=== PATIENT | female | born 2005 | race Caucasian/White ===

== ENCOUNTER 2024-06-06 08:31 | Emergency (ER) | payer BC, MEDICAID, SELFPAY ==
[2024-06-06 08:41] VITALS: BMI 28.7
[2024-06-06 09:05] LABS: Basophils % 0.2 %; Eosinophils # 0.2 10^3/uL (0.0-0.8); Eosinophils % 2.2 %; Hematocrit 35.1 % (36-47); Lymphocytes # 1.8 10^3/uL (1.5-6.5); Lymphocytes % 16.5 %; Mean Corpuscular HGB Conc 33.3 g/dL (30-55); Mean Corpuscular Hemoglobin 26.8 pg (27-33); Mean Corpuscular Volume 80.5 fl (85-98); Mean Platelet Volume 10.2 fL (7.4-10.4); Monocytes # 0.5 10^3/uL (0.2-0.9); Monocytes % 5.1 %; Neutrophils # 8.08 10^3/uL (1.8-8.0); Neutrophils % 75.6 %; Nucleated Red Blood Cells % 0 %; Platelet Count 188 10^3/cmm (157-399); Red Blood Count 4.36 10^6/uL (3.85-5.65); Red Cell Distribution Width 13.2 % (12.1-15.1); White Blood Count 10.68 10^3/uL (4.5-13.0)
--- NOTE | 2024-06-06 09:17 | ED_ITS ---
HPI - Abdominal Pain 2 General: Chief Complaint: Abdominal Pain Stated Complaint: abd pain Time Seen by Provider: 06/06/24 08:43 History of Present Illness: 18-year-old female presents emergency ro om complaining of epigastric right upper quadrant abdominal pain that began last night. Patient is G1, P0 at approximately 16 weeks gestation. She has had nausea associated with this but no vomiting. No diarrhea. She has not noticed anything that makes it better or worse she has not had this previously. No dysuria urgency or frequency no vaginal bleeding or discharge. No previous abdominal surgeries Associated Symptoms: Denies chills, dysuria and fever(s) Related Data Home Medications ?Medication ?Instructions ?Recorded ?Confirmed albuterol sulfate 90 mcg/actuation 1 puff inhalation Q 4H PRN 06/06/24 06/06/24 aerosol inhaler Shortness Of Breath budesonide-formoterol HFA 160 2 puff inhalation Q4H MN N 06/06/24 06/06/24 mcg-4.5 mcg/actuation aerosol Shortness Of Breath inhaler Previous Rx's ?Medication ?Instructions ?Recorded nitrofurantoin 100 mg PO BID 7 days #14 cap s 06/06/24 monohydrate/macrocrystals 100 mg capsule (Macrobid) pantoprazole 40 mg tablet,delayed 40 mg PO DAILY #30 t abs 06/06/24 release (Protonix) Allergies Allergy/AdvReac Type Severity Reaction Status Date / Time No Known Allergies Allergy Verified 06/06/24 08:52 Review of Systems 2 Const: Denies: fever(s) or chills Card: Denies: chest pain Resp: Denies: dyspnea GI: Reports: abdominal pain : Denies: dysuria, urinary frequency or urinary urgency Musc: Denies: neck pain or back pain Skin/Breast: Denies: rash Physical Exam 2 Const: GENERAL APPEARANCE: cooperative ORIENTATION/CONSCIOUSNESS: Yes awake, Yes oriented to person, Yes oriented to place and Yes oriented to time HENMT: COMMON NORMALS: normocephalic, atraumatic and hearing grossly normal bilaterally HEAD & SCALP: normocephalic and atraumatic Resp: COMMON NORMALS: normal respiratory effort, No retractions, No use of accessory muscles and clear to auscultation bilaterally AUSCULTATION: clear to auscultation bilaterally Cardio: COMMON NORMALS: regular rate, regular rhythm and No murmurs present (Cardio) RATE: regular rate RHYTHM: regular rhythm GI: COMMON NORMALS: Soft to palpation and No hepatosplenomegaly present A USCULTATION: Yes normoactive bowel sounds PALPATION: Yes Soft to palpation, Yes Tenderness to palpation present (GI) Details: RUQ, No Guarding due to palpation present (GI) and Yes No hepatosplenomegaly present Extremity: COMMON NORMALS: normal to inspection, capillary refill normal, no clubbing, cyanosis or edema, no calf tenderness and no pedal edema Neuro: SENSORIUM/ORIENTATION: Yes oriented to person, Yes oriented to place and Yes oriented to time Skin: COMMON NORMALS: no rashes or lesions noted GENERAL SKIN EXAM: no rashes or lesions noted Course 2 Vital Signs: Vital signs: Vital Signs Pulse Rate 99 06/06/24 13:29 Blood Pressure 120/76 06/06/24 13:29 Pulse Oximetry 97 06/06/24 13:29 MDM - Abdominal Pain Medical Decision Making Patient improved after GI cocktail. It is possible she does have biliary dyskinesia if symptoms persist she may need to be reevaluated for now start her on pantoprazole 40 twice daily for 10 days then 40 daily. Additionally we will start her on Macrobid she incidental notation of a bladder infection today follow-up with her primary OB within the next week. heart tones dopplered 140s to 150s Medical Records I reviewed the patient's medical records. Lab Data I reviewed the patient's lab results. 06/06/24 08:59 06/06/24 08:59 Labs/Radiology: Radiology Impressions Gallbladder Ultrasound 06/06/24 10:48 IMPRESSION: Unremarkable right upper quadrant ultrasound. Laboratory Results WBC 10.68 10^3/uL (4.5-13.0) 06/06/24 08:59 RBC 4.36 10^6/uL (3.85-5.65) 06/06/24 08:59 Hgb 11.70 g/dL (12.4-14.8) L 06/06/24 08:59 Hct 35.1 % (36-47) L 06/06/24 08:59 MCV 80.5 fl (85-98) L 06/06/24 08:59 MCH 26.8 pg (27-33) L 06/06/24 08:59 MCHC 33.3 g/dL (30-55) 06/06/24 08:59 RDW 13.2 % (12.1-15.1) 06/06/24 08:59 Plt Count 188 10^3/cmm (157-399) 06/06/24 08:59 MPV 10.2 fL (7.4-10.4) 06/06/24 08:59 Neut % (Auto) 75.6 % 06/06/24 08:59 Lymph % (Auto) 16.5 % 06/06/24 08:59 Hitchcock % (Auto) 5.1 % 06/06/24 08:59 Eos % (Auto) 2.2 % 06/06/24 08:59 Baso % (Auto) 0.2 % 06/06/24 08:59 Neut # (Auto) 8.08 10^3/uL (1.8-8.0) H 06/06/24 08:59 Lymph # (Auto) 1.8 10^3/uL (1.5-6.5) 06/06/24 08:59 Hitchcock # (Auto) 0.5 10^3/uL (0.2-0.9) 06/06/24 08:59 Eos # (Auto) 0.2 10^3/uL (0.0-0.8) 06/06/24 08:59 Baso # (Auto) 0.0 10^3/uL (0.0-0.1) 06/06/24 08:59 Nucleated RBC % (auto) 0 % 06/06/24 08:59 Nucleated RBCs # 0.0 /100WBC 06/06/24 08:59 Sodium 135 mmol/L (136-145) L 06/06/24 08:59 Potassium 3.6 mmol/L (3.5-5.1) 06/06/24 08:59 Chloride 103 mmol/L (98-107) 06/06/24 08:59 Carbon Dioxide 19 mmol/L (22-29) L 06/06/24 08:59 Anion Gap 16.6 (5-19) 06/06/24 08:59 BUN 6 mg/dL (6-20) 06/06/24 08:59 Creatinine 0.4 mg/dL (0.5-0.9) L 06/06/24 08:59 GFR Calculation 205.6 mL/min (90-130) H 06/06/24 08:59 Glucose 97 mg/dL (65-115) 06/06/24 08:59 Calculated Osmolality 278 mOsm/kg (285-295) L 06/06/24 08:59 Calcium 8.7 mg/dL (8.5-10.5) 06/06/24 08:59 Total Bilirubin 0.3 mg/dL (0.15-1.2) 06/06/24 08:59 AST 16 U/L (0-32) 06/06/24 08:59 ALT 14 U/L (0-33) 06/06/24 08:59 Alkaline Phosphatase 66 U/L (35-105) 06/06/24 08:59 Total Protein 7.3 g/dL (6.6-8.7) 06/06/24 08:59 Albumin 3.7 g/dL (3.5-5.2) 06/06/24 08:59 Globulin 3.6 g/dL (1.3-4.6) 06/06/24 08:59 Lipase 20 U/L (13-60) 06/06/24 08:59 Urine Color Yellow (Yellow) 06/06/24 11:00 Urine Appearance Clear (CLEAR) 06/06/24 11:00 Urine pH 7.0 (5-7) 06/06/24 11:00 Ur Specific [place] 1.012 (1.005-1.030) 06/06/24 11:00 Urine Protein Negative (Negative) 06/06/24 11:00 Urine Glucose (UA) Negative (Normal) 06/06/24 11:00 Urine Ketones 1+ (Negative) H 06/06/24 11:00 Urine Blood Negative (Negative) 06/06/24 11:00 Urine Nitrate Negative (Negative) 06/06/24 11:00 Urine Bilirubin Negative (Negative) 06/06/24 11:00 Urine Urobilinogen 0.2 mg/dL (Negative) 06/06/24 11:00 Ur Leukocyte Esterase Negative (Negative) 06/06/24 11:00 Urine RBC 0-2 /hpf (0-2) 06/06/24 11:00 Urine WBC 6-10 /hpf (0-5) 06/06/24 11:00 Ur Squamous Epith Cells 0-5 /hpf (0-5) 06/06/24 11:00 Amorphous Sediment Not Reportable 06/06/24 11:00 Urine Bacteria None seen /hpf (NONE) 06/06/24 11:00 Hyaline Casts 0.40 /lpf 06/06/24 11:00 Urine Mucus 1+ /hpf 06/06/24 09:25 All radiology interpretation(s) finalized by discharge Discharge Plan Discharge Patient Disposition: Home Clinical Impression: GERD (gastroesophageal reflux disease), Cystitis, state, incidental Condition: Stable Prescriptions: New pantoprazole [Protonix] 40 mg tablet,delayed release (DR/EC) 40 mg PO DAILY Qty: 30 0RF nitrofurantoin monohyd/m-cryst [Macrobid] 100 mg capsule 100 mg PO BID 7 Days Qty: 14 0RF Rx Instructions: must administer with a meal/food No Action albuterol sulfate 90 mcg/actuation HFA aerosol inhaler 1 puff INHALATION Q4H PRN (Reason: Shortness Of Breath) budesonide-formoterol 160-4.5 mcg/actuation HFA aerosol inhaler 2 puff INHALATION Q4H PRN (Reason: Shortness Of Breath) Discharge Orders: Discharge ED (Routine); Ordered 06/06/24 Ordered By: Kehinde Canchola Discharge Diet: As Directed Patient Instructions: Diet for Stomach Ulcers and Gastritis (ED), Opioid Safety, Pain Management Activity Restrictions/Additional Instructions: Thank you for choosing [facility] for your healthcare needs today. It is very important that you follow up as instructed or that you return to the Emergency Department should you have concerns or if your condition changes or worsens in any way. You are seen in the emergency room with abdominal pain laboratory tests are unremarkable you did have a mild bladder infection for which we started on antibiotic. Suspect the majority of discomfort that you presented with was due to your stomach. We did evaluate your gallbladder as well there is no sign of acute gallbladder problems at this time. Recommend you start pantoprazole 40 mg once a day or also given a diet to follow to minimize irritation to the stomach. Follow-up with your primary care doctor or OB doctor within the next week Print Language: Slovenian Coding Level of Care Code ED Emergency Services Director for Zachary Mcmanus
[2024-06-06 09:26] LABS: Alanine Aminotransferase 14 U/L (0-33); Albumin Level 3.7 g/dL (3.5-5.2); Alkaline Phosphatase 66 U/L (35-105); Anion Gap 16.6 (5-19); Aspartate Amino Transferase 16 U/L (0-32); Blood Urea Nitrogen 6 mg/dL (6-20); Calcium 8.7 mg/dL (8.5-10.5); Carbon Dioxide 19 mmol/L (22-29); Chloride 103 mmol/L (98-107); Creatinine Clr Calc Pharmacy 200.9089; Globulin 3.6 g/dL (1.3-4.6); Glomerular Filtration Rate 205.6 mL/min (90-130); Glucose 97 mg/dL (65-115); Lipase 20 U/L (13-60); Osmolality Calculated 278 mOsm/kg (285-295); Potassium 3.6 mmol/L (3.5-5.1); Sodium 135 mmol/L (136-145); Total Bilirubin 0.3 mg/dL (0.15-1.2); Total Protein 7.3 g/dL (6.6-8.7)
[2024-06-06 09:32] LABS: Bilirubin Urine Negative (Negative); Blood Urine Negative (Negative); Glucose Urine UA Negative (Normal); Ketones Urine Negative (Negative); Leukocyte Esterase Urine 1+ (Negative); Nitrate Urine Negative (Negative); Protein Urine Trace (Negative); Specific Gravity, Urine 1.013 (1.005-1.030); Urine Appearance Cloudy (CLEAR); Urine Color Yellow (Yellow); Urobilinogen Urine 0.2 mg/dL (Negative); pH Urine 8.5 (5-7)
[2024-06-06 09:37] LABS: Add Urine Microscopic? YES; Bacteria Urine 2+ /hpf; Hyaline Casts Urine 0-4 /lpf; RBC Urine 0-2 /hpf (0-2); Squamous Epithelial Cell Urine 21-50 /hpf (0-5)
[2024-06-06 09:43] LABS: Amorphous Sediment Urine 2+ /hpf; Mucus Urine 1+ /hpf; UA Slide Review UA Slide Review Perf
[2024-06-06] MEDS: prochlorperazine 10 mg/2 mL Inj IVP (09:54)
[2024-06-06] MEDS: sodium chloride 0.9% 1,000 ML 999 ML IV (09:55)
--- NOTE | 2024-06-06 10:48 | USR_ITS ---
PROCEDURE INFORMATION: Exam: US Abdomen, Limited; Right Upper Quadrant Exam date and time: 06/06/2024 11:16 AM Age: 18 years old Clinical indication: Abdominal pain; Localized; Right upper quadrant (ruq); TECHNIQUE: Imaging protocol: Real time ultrasound of the abdomen with image documentation. Limited exam focused on the right upper quadrant. COMPARISON: No relevant prior studies available. FINDINGS: Liver: The liver measures 12.8 cm. Gallbladder: Gallbladder is unremarkable. No gallbladder wall thickening or pericholecystic fluid. No cholelithiasis. Biliary ducts: The common bile duct measures 5 mm. Pancreas: The visualized portions of the pancreas are unremarkable. Right kidney: The right kidney measures 8.4 cm. No hydronephrosis. Aorta: The aorta and IVC are unremarkable. Portal venous: The portal vein is patent with normal direction of flow. Peak systolic velocity of 46 cm/s. US/US gall bladder [id number] IMPRESSION: Unremarkable right upper quadrant ultrasound.
[2024-06-06 11:11] LABS: Bilirubin Urine Negative (Negative); Blood Urine Negative (Negative); Glucose Urine UA Negative (Normal); Ketones Urine 1+ (Negative); Leukocyte Esterase Urine Negative (Negative); Nitrate Urine Negative (Negative); Protein Urine Negative (Negative); Specific Gravity, Urine 1.012 (1.005-1.030); Urine Appearance Clear (CLEAR); Urine Color Yellow (Yellow); Urobilinogen Urine 0.2 mg/dL (Negative)
[2024-06-06 11:16] LABS: Bacteria Urine None Seen /hpf; RBC Urine 0-2 /hpf (0-2); Squamous Epithelial Cell Urine 0-5 /hpf (0-5)
[2024-06-06] MEDS: lidocaine 2% viscous 15 ML, aluminum-mag hydrox-simethicon 30 ML, sucralfate oral liq 1 GM PO (11:44)
[2024-06-06 13:29] VITALS: BP 120/76; PULSE 99; O2SAT 97
== END 2024-06-06 13:32 | disposition home or self-care (01) ==
PROVIDERS: Emergency Provider Family Medicine
DX: K21.9 Gastro-esophageal reflux disease without esophagitis (principal); N30.90 Cystitis, unspecified without hematuria; Z33.1 Pregnant state, incidental
CPT/HCPCS: 36415; 76705; 80053; 81001; 83690; 85025; 96361; 96374; 99284; J0780; J7030; J9999

== ENCOUNTER → 2025-01-27 13:13 | Outpatient (BNVA) | payer BC, MEDICAID, SELFPAY | PROVIDERS: PCP Family Medicine; Visit Provider Family Medicine | DX: Z51.81 Encounter for therapeutic drug level monitoring (principal); E55.9 Vitamin D deficiency, unspecified; R53.81 Other malaise; R53.83 Other fatigue | CPT/HCPCS: 82306; 84439; 84443; 84481; 85025 ==